=== PATIENT | female | born 1940 | race Caucasian/White ===

== ENCOUNTER 2016-07-26 11:39 | Day surgery (SDC) | payer MEDICARE, OTHER ==
[~2016-07-26] VITALS: Ht 149.9 cm; Wt 81.2 kg
[~2016-07-26 11:39] MED LIST: 0.9% Sodium Chloride 1,000 ML IV SCH; ASPI325T32 PO; ATRV10T PO; CALC500T9 PO; CYCL5TAB PO; DICY20TA10 PO; OXYC1TAB24 PO; PROP80CA2 PO; Sodium Chloride LOK Flush 10 mL Syringe IV PRN; fentaNYL-PF 50 mCg/mL 2 mL Inj IVPUSH PRN
[2016-07-26 12:02] VITALS: BP 146/77; PULSE 74; RESP 14; O2SAT 96
[2016-07-26] MEDS ORDERED: PROZ20 PO (12:08)
[2016-07-26 13:26] VITALS: BP 133/75; PULSE 62; RESP 16; O2SAT 91
[2016-07-26 13:36] VITALS: BP 142/68; PULSE 65; RESP 16; O2SAT 97
[2016-07-26 13:39] VITALS: BP 124/69; PULSE 63; RESP 16; O2SAT 94
--- NOTE | 2016-07-26 14:01 | ENDO ---
[address] [address] ENDOSCOPY PROCEDURE PATIENT: BROOKLYNN STAHL : 1940 MR#: [id number] ADMIT: 07/26/2016 JOB ID: [id number] DATE OF PROCEDURE: 07/26/2016 PROCEDURE: Colonoscopy. INDICATION: Screening. EQUIPMENT: PCF-H180AL SEDATION: Versed 2 mg and fentanyl 50 mcg. PREPARATION QUALITY: Good. COMPLICATIONS: None identified. PROCEDURE INFORMATION: The patient was brought to the Endoscopy Suite and placed in left lateral decubitus position. Sedation was achieved using the above-stated medications. Oxygen was administered via nasal cannula. Digital rectal exam was performed and unremarkable. She did have some skin tags. The colonoscope was inserted through the anus and passed carefully under direct visualization through down into the cecum. The appendiceal orifice was identified and photographed. The ileocecal valve was intubated about 3 or 4 times but unable to get the scope to stay in the terminal ileum. I then slowly withdrew the scope, slowly examining mucosa for any defects or polyps. The scope was then completely withdrawn. The case concluded. FINDINGS: Normal colonoscopy. RECOMMENDATIONS: No further screening colonoscopy is recommended.
== END 2016-07-26 23:59 | disposition home or self-care (01) ==
LOC: END 11:39
PROVIDERS: ATTEND General Practice
PROC: 0DJD8ZZ Inspection of Lower Intestinal Tract, Via Natural or Artificial Opening Endoscopic (ICD-10-PCS; principal; 2016-07-26 12:30)
DX: Z12.11 Encounter for screening for malignant neoplasm of colon (principal); I10 Essential (primary) hypertension
CPT/HCPCS: 99153; G0121; G0500; J7030